=== PATIENT | female | born 1965 | race African-American/Black ===

== ENCOUNTER 2019-05-26 22:28 | Emergency (ER) | payer OTHER ==
[~2019-05-26 22:28] MED LIST: NAPR220T57 PO; NOCURR
== END 2019-05-26 23:00 | disposition left against medical advice (07) ==
LOC: EMS 22:28
DX: S61.412A Laceration without foreign body of left hand, initial encounter (principal); Z53.21 Procedure and treatment not carried out due to patient leaving prior to being seen by health care provider; W45.8XXA Other foreign body or object entering through skin, initial encounter; Y93.89 Activity, other specified; Y92.89 Other specified places as the place of occurrence of the external cause; Y99.8 Other external cause status